=== PATIENT | female | born 1990 | race Caucasian/White ===

== ENCOUNTER 2017-03-17 12:18 | Emergency (ER) | payer BC ==
[2017-03-17 12:20] VITALS: BMI 53.4
[2017-03-17 12:26] VITALS: TEMP 98.9; O2SAT 98
[2017-03-17] MEDS ORDERED: Dexamethasone 4 mg/1 ml IVP STA (12:27)
[2017-03-17] MEDS ORDERED: Sodium Chloride 0.9% 1,000 ML IV STA (12:29)
--- NOTE | 2017-03-17 12:32 | ED PDOC ---
Arrival/HPI - General Historian: Patient - General Chief Complaint: ENT Problem Time Seen by Provider: 03/17/17 12:26 - History of Present Illness Narrative History of Present Illness (Text): 03/17/17 12:30 27 y/o female, no pmh, nkda, c/o throat pain and painful swallowing x 2 days. Aching throat pain, mild change in speech, no fever or chills, more painful today, no night sweat, no dizziness, no numbness or tingling, no palpitation, no other medical or psychological complaints. (Dakota Davison) Past Medical History - Provider Review Nursing Documentation Reviewed: Yes - Past History Past History: No Previous - Infectious Disease Hx of Infectious Diseases: None - Tetanus Immunization Tetanus Immunization: Unknown - Past Medical History Past Medical History: No Previous - Cardiac Hx Cardiac Disorders: No - Pulmonary Hx Respiratory Disorders: No - Neurological Hx Neurological Disorder: Yes Hx Seizures: Yes Other/Comment: febrile seizure - HEENT Hx HEENT Disorder: No - Renal Hx Renal Disorder: No - Endocrine/Metabolic Hx Endocrine Disorders: No - Hematological/Oncological Hx Blood Disorders: No - Integumentary Hx Dermatological Disorder: No - Musculoskeletal/Rheumatological Hx Musculoskeletal Disorders: No - Gastrointestinal Hx Gastrointestinal Disorders: No - Genitourinary/Gynecological Hx Genitourinary Disorders: No - Psychiatric Hx Psychophysiologic Disorder: No Hx Anxiety: Yes Hx Depression: No Hx Emotional Abuse: No Hx Physical Abuse: No Hx Substance Use: No - Past Surgical History Past Surgical History: No Previous - Anesthesia Hx Anesthesia: No - Suicidal Assessment Feels Threatened In Home Enviroment: No Family/Social History - Physician Review Nursing Documentation Reviewed: Yes Family/Social History: Unknown Family HX Smoking Status: Light Smoker < 10 Cigarettes Daily Hx Alcohol Use: Yes Hx Substance Use: No Hx Substance Use Treatment: No Allergies/Home Meds Allergies/Adverse Reactions: Allergies peanut Allergy (Verified 02/11/16 14:24) ANAPHYLAXIS Review of Systems - Review of Systems Constitutional: absent: Fatigue, Fevers Eyes: absent: Vision Changes ENT: Sore Throat. absent: Hearing Changes Respiratory: absent: Cough, Sputum Cardiovascular: absent: Chest Pain Gastrointestinal: absent: Abdominal Pain, Diarrhea, Nausea, Vomiting Musculoskeletal: absent: Arthralgias, Back Pain, Neck Pain, Joint Swelling, Myalgias Skin: absent: Rash, Pruritis, Skin Lesions, Laceration, Abscess, Ulcer, Cellulitis Neurological: absent: Headache, Dizziness, Focal Weakness Physical Exam Vital Signs Reviewed: Yes Temperature: Afebrile Blood Pressure: Hypertensive Pulse: Regular Respiratory Rate: Normal Appearance: Positive for: Well-Appearing, Non-Toxic, Comfortable, Uncomfortable Pain Distress: Severe Mental Status: Positive for: Alert and Oriented X 3 - Systems Exam Head: Present: Atraumatic, Normocephalic Pupils: Present: PERRL, Other (Rt. eye exopthalmos noted. ) Extroacular Muscles: Present: EOMI, Other (Eyes: rt. eye 20/800 with correction with exopthalmos along with the cornea is pointy when looking at laterally vs. left eye 20/40 with correction, bilateral 20/40 with correction, there is no corneal abrasion or laceration, there is ptosis of the rt. eye compared to the left eye. ) Conjunctiva: Present: Normal Mouth: Present: Moist Mucous Membranes Pharnyx: Present: Muffled/Hoarse Voice. No: ERYTHEMA, EXUDATE, TONSILS ENLARGED , Peritonsilar Swelling, Uvular Deviation, Strider, Soft Palate/Uvular Edema Nose (External): Present: Atraumatic. No: Abrasion, Contusion, Laceration Nose (Internal): Present: Normal Inspection, No Active Bleeding. No: Rhinorrhea , Septal Hematoma, Epistaxis Neck: Present: Normal Range of Motion, Trachea Midline. No: Meningeal Signs, MIDLINE TENDERNESS, Lymphadenopathy Respiratory/Chest: Present: Clear to Auscultation, Good Air Exchange. No: Respiratory Distress, Accessory Muscle Use Cardiovascular: Present: Regular Rate and Rhythm, Normal S1, S2. No: Murmurs Abdomen: Present: Normal Bowel Sounds. No: Tenderness, Distention, Peritoneal Signs Back: Present: Normal Inspection Upper Extremity: Present: Normal Inspection. No: Cyanosis, Edema Lower Extremity: Present: Normal Inspection. No: Edema Neurological: Present: GCS=15, CN II-XII Intact, Speech Normal Skin: Present: Warm, Dry, Normal Color. No: Rashes Psychiatric: Present: Alert, Oriented x 3, Normal Insight, Normal Concentration Vital Signs Temp Pulse Resp BP Pulse Ox 03/17/17 15:01 76 18 143/79 98 03/17/17 13:36 79 18 145/86 98 03/17/17 12:25 98.9 F 81 18 149/98 H 98 Medical Decision Making - RAD Interpretation Recessing Machine Operator: Radiologist ED Course and Treatment: The chart was reviewed by me, and I agree with disposition. (YuJulien) 03/17/17 12:29 -labs -CT soft tissue -IV decadron/toradol/clindamycin -Observe and reassess 03/17/17 15:41 -Labs are nonsignificant with no elevation of wbc. -CT show there is mildly enlarged palatine tonsils which could represent the sequela of tonsillitis, tosils encroach posteriomedially reducijng the oropharngeal airway. NO evidence of peritonsillar abscess. Enlarged adenoids. There is expansile lesion which displaced the left right globe the anterolaterlaly. -I discussed about the CT reading with the patient which she already realized the rt. 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 -I spoke to DR. Jose which I discussed about the vision and CT reading, suggest to see him at the office tomorrow 9am for follow up. 03/17/17 16:27 -I have been trying to call the ENT for over 45 minutes, no one call back, pt. feels much better with the muffling voice resolved. Pt. is able to drink and eat, no definite abscess, no emergent admission or observation needed at this point. Pt. advised to call the ENT when she leaves the hospital or tomorrow morning for the follow up tomorrow morning. -Case discussed with ER attending DR. Nicholas and he agreed on the consults plus dispo plan. 03/17/17 16:32 -Dr. Watts just call me back which he is covering for DR. Thakur which he agreed on the clindamycin and steroid treatment. Dr. Watts awared of the case and CT report after I discussed with him. Dr. Watts suggest to discharge home and follow up with his office tomorrow. -Discharge home with clindamycin, ibuprofen, medrodosepak, stay hydrated, soft food diet, stay hydrated, follow up with your own pmd within 2 days, follow up with DR. Jose tomorrow morning 9am for follow up regarding about the CT scan , follow up with Dr. Thakur tomorrow morning or within 24-48 hours, return to the ER for any new or worsening signs or symptoms. (Dakota Davison) - Lab Interpretations Lab Results: 03/17/17 12:55 03/17/17 12:55 Lab Results 03/17/17 12:55: Sodium 141, Potassium 3.8, Chloride 105, Carbon Dioxide 28, Anion Gap 12, BUN 15, Creatinine 0.6, Est GFR ( Amer) > 60, Est GFR (Non- Af Amer) > 60, Random Glucose 110, Calcium 9.1, Total Bilirubin 0.6, AST 22, ALT 31, Alkaline Phosphatase 98, Total Protein 8.6 H, Albumin 4.1, Globulin 4.6 , Albumin/Globulin Ratio 0.9 L 03/17/17 12:55: WBC 10.2 D, RBC 4.39, Hgb 11.4 L, Hct 36.2, MCV 82.5, MCH 26.0 , MCHC 31.5, RDW 15.5 H, Plt Count 346, MPV 9.3, Gran % 72.5 H, Lymph % (Auto) 19.9 L, Delta % (Auto) 5.7, Eos % (Auto) 1.5, Baso % (Auto) 0.4, Gran # 7.38 H, Lymph # 2.0, Delta # 0.6, Eos # 0.2, Baso # 0.04 - RAD Interpretation Radiology Orders: 03/17/17 12:28 NECK SOFT TISSUE W/CONTRAST [CT] Stat PROCEDURE: CT scan neck dated 03/17/2017 TECHNIQUE: Intravenous contrast dose: 100 cc of Omnipaque 350 contrast material. Radiation dose: DLP 494.59 mGy-cm This CT exam was performed using one or more of the following dose reduction techniques: Automated exposure control, adjustment of the mA and/or kV according to patient size, and/or use of iterative reconstruction technique. Findings: The tonsils are enlarged right greater than left and encroach medially into oropharynx reducing the airway. No obvious peritonsillar abscesses or fluid collections seen. The remaining oral pharyngeal structures appear grossly unremarkable. Parapharyngeal fat spaces are is relatively symmetric. There is also enlargement of the adenoid tonsils which reduce the posterior nasopharyngeal airway as well. Minimal asymmetry of the vallecula which could be due to some extension of lingual tonsils on however residual and or retained secretions may contribute. minor asymmetry of the of pyriform sinuses and aryepiglottic folds nonspecific. Direct visualization could be performed to exclude mucosal abnormality which is less likely in this age group though not completely excluded. The true vocal cords appear symmetric. Multiple small to medium sized bilateral cervical lymph nodes are seen within the jugulodigastric, posterior cervical spaces, submandibular and submental regions bilaterally. The largest left-sided jugulodigastric lymph node measures approximately 16 mm and on the right side 15.6 mm largest right-sided submandibular lymph node measures approximately 15.0 mm. The submandibular and parotid glands unremarkable. Mild mucosal thickening both maxillary antra as well as sphenoid sinus. There is also a relatively large expansile lesion seen in the superior aspect of the right ethmoid air complex and frontal sinus which measures approximately 3.0 trans x 2 5 cm cc x 2.25 cm AP. This has eroded the right lamina papyracea and extended into the medial aspect of the right orbit. The lesion also displaces the left right globe the yanci- laterally. This lesion is of uncertain etiology though could represent a mucocele. Impression: Mildly enlarged palatine tonsils which could represent the sequela of tonsillitis. The tonsils encroach posteromedially reducing the oropharyngeal airway. No evidence peritonsillar abscess. Enlarged adenoids. Multiple small to medium sized bilateral cervical lymph nodes as described. Minor asymmetry of the aryepiglottic folds and pyriform sinuses nonspecific. Direct visualization could be performed to exclude any mucosal lesion. Mild mucosal thickening both maxillary antra as well as sphenoid sinus. There is also a relatively large expansile lesion seen in the superior aspect of the right ethmoid air complex and frontal sinus which measures approximately 3.0 trans x 2 5 cm cc x 2.25 cm AP. This has eroded the right lamina papyracea and extended into the medial aspect of the right orbit. The lesion also displaces the left right globe the yanci- laterally. This lesion is of uncertain etiology though could represent a mucocele. Findings discussed with CARLTON Davison at 2:59 p.m. with written down and read back verification. (Dakota Davison) - Medication Orders Current Medication Orders: Discontinued Medications Clindamycin Phosphate (Cleocin) Confirm Administered Dose 600 mg .ROUTE .STK- MED ONE Stop: 03/17/17 12:43 Last Admin: 03/17/17 13:05 Dose: Dexamethasone (Decadron Inj) 8 mg IVP STAT STA Stop: 03/17/17 12:28 Last Admin: 03/17/17 12:58 Dose: 8 mg Clindamycin Phosphate 900 mg/ (Sodium Chloride) 106 mls @ 106 mls/hr IVPB STAT STA PRN Reason: Protocol Stop: 03/17/17 13:26 Last Admin: 03/17/17 12:58 Dose: 106 mls/hr Sodium Chloride (Sodium Chloride 0.9%) 1,000 mls @ 999 mls/hr IV .Q1H1M STA Stop: 03/17/17 13:29 Last Admin: 03/17/17 12:59 Dose: 999 mls/hr Iohexol (Omnipaque 350 100 Ml) Confirm Administered Dose 350 mg .ROUTE .STK-MED ONE Stop: 03/17/17 13:23 Ketorolac Tromethamine (Toradol) 30 mg IVP STAT STA Stop: 03/17/17 12:28 Last Admin: 03/17/17 12:58 Dose: 30 mg Re-Assess: [facility] Pain Assessment Document 03/17/17 13:58 HI (Rec: 03/17/17 14:44 HI [id number]) Pain Reassessment Is this a pain reassessment? Yes Sleep Is patient sleeping during reassessment? No Presence of Pain Presence of Pain No Pain Scale Used Pain Scale Used Numeric - PA / COMMUNICATION SPEC / Resident Statement MD/DO has reviewed & agrees with the documentation as recorded. Disposition/Present on Arrival - Present on Arrival Any Indicators Present on Arrival: No History of DVT/PE: No History of Uncontrolled Diabetes: No Urinary Catheter: No History of Decub. Ulcer: No History Surgical Site Infection Following: None - Disposition Have Diagnosis and Disposition been Completed?: Yes Disposition Time: 16:34 Patient Plan: Discharge - Disposition Diagnosis: Tonsillitis, Orbital lesion, Constant exophthalmos of right eye, Vision loss of right eye Disposition: HOME/ ROUTINE Patient Problems: Current Active Problems Problem Status Onset Constant exophthalmos of right eye Acute Orbital lesion Acute Tonsillitis Acute Vision loss of right eye Acute Condition: IMPROVED Additional Instructions: Discharge home with clindamycin, ibuprofen, medrodosepak, stay hydrated, soft food diet, stay hydrated, follow up with your own pmd within 2 days, follow up with DR. Jose tomorrow morning 9am for follow up regarding about the CT scan , follow up with Dr. Thakur tomorrow morning or within 24-48 hours, return to the ER for any new or worsening signs or symptoms. Prescriptions: Clindamycin [Cleocin] 300 mg PO QID #40 cap Ibuprofen [Motrin Tab] 800 mg PO TID PRN #21 tab PRN Reason: Other Methylprednisolone [Medrol Dose Pack (21 tabs)] 4 mg PO DAILY #21 mg Referrals: PCP,NO [Primary Care Provider] - Follow up with primary Carlos Watts DO [[facility]] - Follow up with primary David Jose MD [Staff Provider] - Follow up with primary Maureen Delgado MD [Staff Provider] - Follow up with primary Forms: WORK NOTE
[2017-03-17] MEDS ORDERED: Clindamycin 150 mg/mL Inj ONE (12:42)
[2017-03-17 13:01] LABS: ADD MANUAL DIFF? NO
[2017-03-17 13:09] LABS: BASO # 0.04 K/mm3 (0.0-2.0); BASO % 0.4 % (0.0-3.0); EOS # 0.2 (0.0-0.7); EOS % 1.5 % (1.5-5.0); GRAN # 7.38 (1.4-6.5); GRAN % 72.5 % (50.0-68.0); HEMATOCRIT 36.2 % (36.0-48.0); LYMPH % 19.9 % (22.0-35.0); MEAN CELL VOLUME 82.5 fL (80.0-105.0); MEAN CORPUSCULAR HGB CONC 31.5 g/dl (31.0-37.0); MEAN PLATELET VOLUME 9.3 fl (7.0-11.0); MONO # 0.6 (0.1-0.6); MONO % 5.7 % (1.0-6.0); PLATELET COUNT 346 10^3/uL (120.0-450.0); RED CELL DISTRIBUTION WIDTH 15.5 % (11.5-14.5); WHITE BLOOD COUNT 10.2 10^3/ul (4.5-11.0)
[2017-03-17 13:12] LABS: ALB/GLOB RATIO 0.9 (1.1-1.8); ALKALINE PHOSPHATASE 98 U/L (38-133); ALT/SGPT 31 U/L (7-56); AST/SGOT 22 U/L (15-39); BILIRUBIN,TOTAL 0.6 mg/dL (0.2-1.3); BLOOD UREA NITROGEN 15 mg/dL (7-21); CALCIUM 9.1 mg/dL (8.4-10.5); CARBON DIOXIDE 28 mmol/L (21-33); CHLORIDE 105 mmol/L (98-107); GFR AFRICAN-AMERICAN > 60; GLUCOSE,RANDOM 110 mg/dL (70-110); POTASSIUM 3.8 mmol/L (3.6-5.0); SODIUM 141 mmol/L (132-148); TOTAL PROTEIN 8.6 g/dL (5.8-8.3)
[2017-03-17] MEDS ORDERED: Iohexol 350 MG/100 ML VIAL ONE (13:22)
--- NOTE | 2017-03-17 15:01 | CT ---
PROCEDURE: CT scan neck dated 03/17/2017 TECHNIQUE: Intravenous contrast dose: 100 cc of Omnipaque 350 contrast material. Radiation dose: DLP 494.59 mGy-cm This CT exam was performed using one or more of the following dose reduction techniques: Automated exposure control, adjustment of the mA and/or kV according to patient size, and/or use of iterative reconstruction technique. Findings: The tonsils are enlarged right greater than left and encroach medially into oropharynx reducing the airway. No obvious peritonsillar abscesses or fluid collections seen. The remaining oral pharyngeal structures appear grossly unremarkable. Parapharyngeal fat spaces are is relatively symmetric. There is also enlargement of the adenoid tonsils which reduce the posterior nasopharyngeal airway as well. Minimal asymmetry of the vallecula which could be due to some extension of lingual tonsils on however residual and or retained secretions may contribute. minor asymmetry of the of pyriform sinuses and aryepiglottic folds nonspecific. Direct visualization could be performed to exclude mucosal abnormality which is less likely in this age group though not completely excluded. The true vocal cords appear symmetric. Multiple small to medium sized bilateral cervical lymph nodes are seen within the jugulodigastric, posterior cervical spaces, submandibular and submental regions bilaterally. The largest left-sided jugulodigastric lymph node measures approximately 16 mm and on the right side 15.6 mm largest right-sided submandibular lymph node measures approximately 15.0 mm. The submandibular and parotid glands unremarkable. Mild mucosal thickening both maxillary antra as well as sphenoid sinus. There is also a relatively large expansile lesion seen in the superior aspect of the right ethmoid air complex and frontal sinus which measures approximately 3.0 trans x 2 5 cm cc x 2.25 cm AP. This has eroded the right lamina papyracea and extended into the medial aspect of the right orbit. The lesion also displaces the left right globe the yanci- laterally. This lesion is of uncertain etiology though could represent a mucocele. Impression: Mildly enlarged palatine tonsils which could represent the sequela of tonsillitis. The tonsils encroach posteromedially reducing the oropharyngeal airway. No evidence peritonsillar abscess. Enlarged adenoids. Multiple small to medium sized bilateral cervical lymph nodes as described. Minor asymmetry of the aryepiglottic folds and pyriform sinuses nonspecific. Direct visualization could be performed to exclude any mucosal lesion. Mild mucosal thickening both maxillary antra as well as sphenoid sinus. There is also a relatively large expansile lesion seen in the superior aspect of the right ethmoid air complex and frontal sinus which measures approximately 3.0 trans x 2 5 cm cc x 2.25 cm AP. This has eroded the right lamina papyracea and extended into the medial aspect of the right orbit. The lesion also displaces the left right globe the yanci- laterally. This lesion is of uncertain etiology though could represent a mucocele. Findings discussed with CARLTON Davison at 2:59 p.m. with written down and read back verification.
[2017-03-17 16:58] VITALS: BP 142/80; PULSE 74; RESP 16
== END 2017-03-17 16:58 | disposition home or self-care (01) ==
LOC: ED 12:18
DX: J03.90 Acute tonsillitis, unspecified (principal); H05.89 Other disorders of orbit; H05.241 Constant exophthalmos, right eye; H54.7 Unspecified visual loss
CPT/HCPCS: 70491; 80053; 85025; 85027; 96374; 96375; 99284; J1100; J1885; J7040; Q9967

== ENCOUNTER 2018-01-29 02:02 | Inpatient (IN) | payer BC ==
[2018-01-29 02:20] VITALS: BMI 53.8
--- NOTE | 2018-01-29 02:43 | ED PDOC ---
Arrival/HPI - General Chief Complaint: Abdominal Pain Time Seen by Provider: 01/29/18 02:29 Historian: Patient - History of Present Illness Narrative History of Present Illness (Text): 01/29/18 02:44 A 28 year old female, no past medical history, presents to the emergency department complaining of abdominal pain for the past four days. Patient reports pain developed after eating uncooked cabbage and beef, notes vomiting four days ago. Patient states pain doesn't radiate. Reports mother had gallbladder removed. Reports she is unable to eat due to abdominal pain. Patient denies any other complaints at this time. Time/Duration: < week Symptom Onset: Sudden Symptom Course: Unchanged Activities at Onset: Rest Context: Home Past Medical History - Provider Review Nursing Documentation Reviewed: Yes - Past History Past History: No Previous - Infectious Disease Hx of Infectious Diseases: None - Tetanus Immunization Tetanus Immunization: Unknown - Past Medical History Past Medical History: No Previous - Cardiac Hx Cardiac Disorders: No - Pulmonary Hx Respiratory Disorders: No - Neurological Hx Neurological Disorder: Yes Hx Seizures: Yes Other/Comment: febrile seizure - HEENT Hx HEENT Disorder: No - Renal Hx Renal Disorder: No - Endocrine/Metabolic Hx Endocrine Disorders: No - Hematological/Oncological Hx Blood Disorders: No - Integumentary Hx Dermatological Disorder: No - Musculoskeletal/Rheumatological Hx Musculoskeletal Disorders: No - Gastrointestinal Hx Gastrointestinal Disorders: No - Genitourinary/Gynecological Hx Genitourinary Disorders: No - Psychiatric Hx Psychophysiologic Disorder: No Hx Anxiety: Yes Hx Depression: No Hx Emotional Abuse: No Hx Physical Abuse: No Hx Substance Use: No - Past Surgical History Past Surgical History: No Previous - Anesthesia Hx Anesthesia: No - Suicidal Assessment Feels Threatened In Home Enviroment: No Family/Social History - Physician Review Nursing Documentation Reviewed: Yes Family/Social History: No Known Family HX Smoking Status: Light Smoker < 10 Cigarettes Daily Hx Alcohol Use: Yes Hx Substance Use: No Hx Substance Use Treatment: No Allergies/Home Meds Allergies/Adverse Reactions: Allergies peanut Allergy (Verified 02/11/16 14:24) ANAPHYLAXIS Home Medications: Home Meds Medication Instructions Recorded Confirmed No Known Home Med 01/29/18 01/29/18 Review of Systems - Physician Review All systems were reviewed & negative as marked: Yes - Review of Systems Constitutional: absent: Fevers Gastrointestinal: Abdominal Pain, Vomiting Physical Exam Vital Signs Reviewed: Yes Vital Signs Temp Pulse Resp BP Pulse Ox 01/29/18 05:45 98.2 F 86 18 141/80 99 01/29/18 04:03 82 18 138/72 99 01/29/18 02:29 98.1 F 92 H 18 147/82 99 Temperature: Afebrile Blood Pressure: Normal Pulse: Regular Respiratory Rate: Normal Appearance: Positive for: Well-Appearing, Non-Toxic, Comfortable Pain Distress: None Mental Status: Positive for: Alert and Oriented X 3 - Systems Exam Head: Present: Atraumatic, Normocephalic Pupils: Present: PERRL Extroacular Muscles: Present: EOMI Conjunctiva: Present: Normal Mouth: Present: Moist Mucous Membranes Neck: Present: Normal Range of Motion Respiratory/Chest: Present: Clear to Auscultation, Good Air Exchange. No: Respiratory Distress, Accessory Muscle Use Cardiovascular: Present: Regular Rate and Rhythm, Normal S1, S2. No: Murmurs Abdomen: Present: Tenderness (epigastric and RUQ), Normal Bowel Sounds. No: Distention, Peritoneal Signs Back: Present: Normal Inspection Upper Extremity: Present: Normal Inspection. No: Cyanosis, Edema Lower Extremity: Present: Normal Inspection. No: Edema Neurological: Present: GCS=15, CN II-XII Intact, Speech Normal Skin: Present: Warm, Dry, Normal Color. No: Rashes Psychiatric: Present: Alert, Oriented x 3, Normal Insight, Normal Concentration Medical Decision Making ED Course and Treatment: 01/29/18 02:43 Impression: A 28 year old female with abdominal pain and vomiting. Plan: -- US abdomen -- labs -- Urinalysis -- Pepcid, Toradol, Zofran -- Reassess and disposition Prior Visits: Notes and results from previous visits were reviewed. Patient was last seen in the emergency department on 03/17/17 for evaluation of throat pain and painful swallowing. Progress Notes: US Abdomen Complete FINDINGS: Limitations: Body habitus. Liver: Normal echogenicity. No mass. No intrahepatic bile duct dilatation. Gallbladder: 2.1 cm nonmobile stone within neck. Sludge. 0.8 cm wall thickness. Mild pericholecystic fluid. No sonographic Samuel's sign. Common bile duct: Up to 0.66 cm in diameter. No stones. Pancreas: Unremarkable as visualized. Kidneys: Normal echogenicity. No hydronephrosis. Spleen: No splenomegaly. Aorta: Unremarkable as visualized. Inferior vena cava: Unremarkable. Free fluid: No significant free fluid. IMPRESSION: 1. Cholelithiasis with gallbladder wall thickening and pericholecystic fluid concerning for acute cholecystitis. Clinical correlation is needed. 2. Borderline biliary ductal dilatation. Correlate with laboratory values. Consider MRCP. Dictated and Authenticated by: Jerry Montenegro MD 01/29/2018 4:01 AM Eastern Time ([place] & [place]) - Lab Interpretations Lab Results: 01/29/18 03:30 01/29/18 03:30 Lab Results 01/29/18 03:30: Sodium 139, Potassium 3.8, Chloride 104, Carbon Dioxide 26, Anion Gap 13, BUN 11, Creatinine 0.5 L, Est GFR ( Amer) > 60, Est GFR ( Non-Af Amer) > 60, Random Glucose 102, Calcium 9.4, Total Bilirubin 0.2, AST 27 , ALT 34, Alkaline Phosphatase 93, Total Protein 7.9, Albumin 3.9, Globulin 4.0 , Albumin/Globulin Ratio 1.0 L, Lipase 96 01/29/18 03:30: Urine Color Yellow, Urine Appearance Clear, Urine pH 6.5, Ur Specific Lockwood 1.010, Urine Protein Negative, Urine Glucose (UA) Negative, Urine Ketones Negative, Urine Blood Negative, Urine Nitrate Negative, Urine Bilirubin Negative, Urine Urobilinogen 0.2, Ur Leukocyte Esterase Negative 01/29/18 03:30: PT 13.7 H, INR 1.20 H 01/29/18 03:30: WBC 8.9, RBC 4.33, Hgb 11.3 L, Hct 36.1, MCV 83.4, MCH 26.1, MCHC 31.3, RDW 14.9 H, Plt Count 313, MPV 9.5, Gran % 63.5, Lymph % (Auto) 23.6 , Dawes % (Auto) 9.5 H, Eos % (Auto) 2.8, Baso % (Auto) 0.6, Gran # 5.64, Lymph # (Auto) 2.1, Dawes # (Auto) 0.8 H, Eos # (Auto) 0.3, Baso # (Auto) 0.05 I have reviewed the lab results: Yes - RAD Interpretation Radiology Orders: 01/29/18 02:37 ABDOMEN COMPLETE [US] Stat - Medication Orders Current Medication Orders: Enoxaparin Sodium (Lovenox) 40 mg SC DAILY MARSHALL PRN Reason: Protocol Hydromorphone HCl (Dilaudid) 0.5 mg IVP Q4H PRN PRN Reason: Pain, severe (8-10) Hydromorphone HCl (Dilaudid) 1 mg IVP Q15M PRN PRN Reason: Pain, moderate (4-7) Stop: 01/29/18 19:59 Last Admin: 01/29/18 19:10 Dose: 1 mg MAR Pain Assessment Document 01/29/18 19:10 SHAWNAJake (Rec: 01/29/18 19:15 [id number]) Pain Reassessment Is this a pain reassessment? Yes Sleep Is patient sleeping during reassessment? No Presence of Pain Presence of Pain Yes Pain Scale Used Pain Scale Used Numeric Location Pain Location Body Site Abdomen Description Description Acute Intensity of Pain at present 8 Acceptable Level of Pain 2 Duration s/p lap faina Pain Behavior Crying Restlessness Facial Grimacing Aggravating Factors None Alleviating Factors/Management Medication Techniques Relaxation Techniques Alleviating Factors Medication Effects of Pain decrease ADL Effectiveness of Techniques patient will verbalized tolerable pain Pain not relieved and LIP/MD was Yes notified IVP Administration Document 01/29/18 19:10 SHAWNAJake (Rec: 01/29/18 19:15 [id number]) Charges for Administration # of IVP Administrations 1 Sodium Chloride (Sodium Chloride 0.9%) 1,000 mls @ 150 mls/hr IV .Q6H40M [facility] Last Admin: 01/29/18 05:38 Dose: 150 mls/hr eMAR Start Stop Document 01/29/18 05:38 BEAR (Rec: 01/29/18 05:38 BEAR [id number]) Intravenous Solution Start Date 01/29/18 Start Time 05:38 Metronidazole (Flagyl) 500 mg in 100 mls @ 100 mls/hr IVPB Q8 MARSHALL PRN Reason: Protocol Stop: 02/01/18 14:01 Last Admin: 01/29/18 13:36 Dose: 100 mls/hr eMAR Start Stop Document 01/29/18 13:36 SML (Rec: 01/29/18 13:36 SML [id number]) Intravenous Solution Start Date 01/29/18 Start Time 13:36 End Date 01/29/18 End time 14:36 Total Infusion Time 60 Ceftriaxone Sodium (Rocephin 1 Gram Ivpb) 1 gm in 100 mls @ 100 mls/hr IVPB DAILY MARSHALL PRN Reason: Protocol Stop: 02/01/18 10:01 Last Admin: 01/29/18 10:50 Dose: 100 mls/hr eMAR Start Stop Document 01/29/18 10:50 SML (Rec: 01/29/18 10:52 [id number] Intravenous Solution Start Date 01/29/18 Start Time 10:52 End Date 01/29/18 End time 11:52 Total Infusion Time 60 Lactated Ringer's (Lactated Ringer's) 1,000 mls @ 75 mls/hr IV .[id number] MARSHALL Stop: 01/29/18 20:01 Last Admin: 01/29/18 18:45 Dose: 75 mls/hr eMAR Start Stop Document 01/29/18 18:45 PRESLEY (Rec: 01/29/18 19:16 CRUZE [id number]) Intravenous Solution Start Date 01/29/18 Start Time 18:45 Ondansetron HCl (Zofran Inj) 4 mg IVP Q4 PRN PRN Reason: Nausea/Vomiting Ondansetron HCl (Zofran Inj) 4 mg IVP ONCE PRN PRN Reason: Nausea/Vomiting Stop: 01/29/18 23:59 Oxycodone/Acetaminophen (Percocet 5/325 Mg Tab) 1 tab PO Q4H PRN PRN Reason: Pain, moderate (4-7) Stop: 02/01/18 19:04 Sennosides (Senokot Tab) 17.2 mg PO HS [facility] Discontinued Medications Famotidine (Pepcid) 20 mg IVP STAT STA Stop: 01/29/18 02:38 Last Admin: 01/29/18 03:34 Dose: 20 mg IVP Administration Document 01/29/18 03:34 BEAR (Rec: 01/29/18 03:34 [facility] Charges for Administration # of IVP Administrations 1 Metronidazole (Flagyl) 500 mg in 100 mls @ 100 mls/hr IVPB STAT STA PRN Reason: Protocol Stop: 01/29/18 05:31 Last Admin: 01/29/18 05:37 Dose: 100 mls/hr eMAR Start Stop Document 01/29/18 05:37 BEAR (Rec: 01/29/18 05:37 [facility] Intravenous Solution Start Date 01/29/18 Start Time 05:37 End Date 01/29/18 End time 06:37 Total Infusion Time 60 Acetaminophen 1,000 mg/ (Miscellaneous) 100 mls @ 400 mls/hr IVPB ONCE ONE Stop: 01/29/18 18:12 Last Admin: 01/29/18 19:21 Dose: 400 mls/hr eMAR Start Stop Document 01/29/18 19:21 CRUZE (Rec: 01/29/18 19:25 CRUZE [id number]) Intravenous Solution Start Date 01/29/18 Start Time 19:21 End Date 01/29/18 End time 19:37 Total Infusion Time 16 MAR Pain Assessment Document 01/29/18 19:21 CRUZJake (Rec: 01/29/18 19:25 CRUZE [id number]) Pain Reassessment Is this a pain reassessment? Yes Sleep Is patient sleeping during reassessment? Yes Pain Scale Used Pain Scale Used Numeric Location Pain Location Body Site Abdomen Description Description Acute Intensity of Pain at present 6 Site Observation S/P LAP FAINA Pain Behavior Moaning Restlessness Facial Grimacing Aggravating Factors None Alleviating Factors/Management Medication Techniques Distraction Relaxation Techniques Alleviating Factors Medication Effects of Pain restless and uncomfortable Effectiveness of Techniques patient will report tolerable pain Pain not relieved and LIP/MD was Yes notified Ketorolac Tromethamine (Toradol) 30 mg IVP STAT STA Stop: 01/29/18 02:38 Last Admin: 01/29/18 03:34 Dose: 30 mg MAR Pain Assessment Document 01/29/18 03:34 BEAR (Rec: 01/29/18 03:34 [facility] Pain Reassessment Is this a pain reassessment? No IVP Administration Document 01/29/18 03:34 BEAR (Rec: 01/29/18 03:34 BEAR [place] [id number]) Charges for Administration # of IVP Administrations 1 Levofloxacin/Dextrose (Levaquin 750mg) 750 mg IVPB ONCE ONE PRN Reason: Protocol Stop: 01/29/18 04:37 Last Admin: 01/29/18 05:37 Dose: 750 mg eMAR Start Stop Document 01/29/18 05:37 BEAR (Rec: 01/29/18 05:37 BEAR [place] [id number]) Intravenous Solution Start Date 01/29/18 Start Time 05:37 End Date 01/29/18 End time 07:07 Total Infusion Time 90 Ondansetron HCl (Zofran Inj) 4 mg IVP STAT STA Stop: 01/29/18 02:38 Last Admin: 01/29/18 03:34 Dose: 4 mg IVP Administration Document 01/29/18 03:34 BEAR (Rec: 01/29/18 03:34 BEAR [place] [id number]) Charges for Administration # of IVP Administrations 1 - PA / [employer] / Resident Statement MD/DO has reviewed & agrees with the documentation as recorded. - Scribe Statement The provider has reviewed the documentation as recorded by the Scribe Everett Sofia Provider Scribe Attestation: All medical record entries made by the Scribe were at my direction and personally dictated by me. I have reviewed the chart and agree that the record accurately reflects my personal performance of the history, physical exam, medical decision making, and the department course for this patient. I have also personally directed, reviewed, and agree with the discharge instructions and disposition. Disposition/Present on Arrival - Present on Arrival Any Indicators Present on Arrival: No History of DVT/PE: No History of Uncontrolled Diabetes: No Urinary Catheter: No History of Decub. Ulcer: No History Surgical Site Infection Following: None - Disposition Have Diagnosis and Disposition been Completed?: Yes Diagnosis: Acute cholecystitis Disposition: HOSPITALIZED Disposition Time: 03:00 Patient Plan: Admission Condition: GOOD
--- NOTE | 2018-01-29 04:01 | US ---
EXAM: US Abdomen Complete CLINICAL HISTORY: 28 years old, female; Pain; Abdominal pain; Generalized; Additional info: Biliary colic ? gallstone TECHNIQUE: Real-time ultrasound of the abdomen (complete) with image documentation. COMPARISON: No relevant prior studies available. FINDINGS: Limitations: Body habitus. Liver: Normal echogenicity. No mass. No intrahepatic bile duct dilatation. Gallbladder: 2.1 cm nonmobile stone within neck. Sludge. 0.8 cm wall thickness. Mild pericholecystic fluid. No sonographic Samuel's sign. Common bile duct: Up to 0.66 cm in diameter. No stones. Pancreas: Unremarkable as visualized. Kidneys: Normal echogenicity. No hydronephrosis. Spleen: No splenomegaly. Aorta: Unremarkable as visualized. Inferior vena cava: Unremarkable. Free fluid: No significant free fluid. IMPRESSION: 1. Cholelithiasis with gallbladder wall thickening and pericholecystic fluid concerning for acute cholecystitis. Clinical correlation is needed. 2. Borderline biliary ductal dilatation. Correlate with laboratory values. Consider MRCP.
[2018-01-29 04:05] LABS: BASO # 0.05 K/mm3 (0.0-2.0); BASO % 0.6 % (0.0-3.0); EOS # 0.3 (0.0-0.7); EOS % 2.8 % (1.5-5.0); GRAN # 5.64 (1.4-6.5); GRAN % 63.5 % (50.0-68.0); HEMOGLOBIN 11.3 g/dL (12.0-16.0); LYMPH # 2.1 (1.2-3.4); LYMPH % 23.6 % (22.0-35.0); MEAN CELL VOLUME 83.4 fl (80.0-105.0); MEAN CORPUSCULAR HEMOGLOBIN 26.1 pg (25.0-35.0); MEAN CORPUSCULAR HGB CONC 31.3 g/dl (31.0-37.0); MEAN PLATELET VOLUME 9.5 fl (7.0-11.0); MONO # 0.8 (0.1-0.6); MONO % 9.5 % (1.0-6.0); RBC 4.33 10^6/uL (3.5-6.1); RED CELL DISTRIBUTION WIDTH 14.9 % (11.5-14.5); WHITE BLOOD COUNT 8.9 10^3/ul (4.5-11.0)
[2018-01-29 04:08] LABS: PH,URINE 6.5 (4.7-8.0); URINE BILIRUBIN NEGATIVE (NEGATIVE); URINE BLOOD NEGATIVE (NEGATIVE); URINE GLUCOSE (UA) NEGATIVE (NEGATIVE); URINE LEUKOCYTE ESTERASE NEGATIVE Leu/uL (NEGATIVE); URINE PROTEIN NEGATIVE mg/dL (<30 mg/dL); URINE UROBILINOGEN 0.2 E.U./dL (<1 E.U./dL)
[2018-01-29 04:19] LABS: INR 1.2 (0.93-1.08); PROTHROMBIN TIME 13.7 SECONDS (9.4-12.5)
[2018-01-29 04:20] LABS: ALBUMIN 3.9 g/dL (3.0-4.8); ALT/SGPT 34 U/L (7-56); AST/SGOT 27 U/L (14-36); BLOOD UREA NITROGEN 11 mg/dL (7-21); CALCIUM 9.4 mg/dL (8.4-10.5); GFR AFRICAN-AMERICAN > 60; GFR NON-AFRICAN AMERICAN > 60; LIPASE 96 U/L (23-300)
[2018-01-29 04:21] LABS: URINE APPEARANCE CLEAR (CLEAR); URINE COLOR YELLOW (YELLOW)
[2018-01-29] MEDS ORDERED: metroNIDAZOLE IV 500 mg/100 ml 500 MG/100 ML BAG IVPB STA (04:32)
[2018-01-29] MEDS ORDERED: levoFLOXacin 750 mg in D5W 150 ML BAG IVPB ONE (04:36)
--- NOTE | 2018-01-29 05:12 | CP.PCM.HP ---
History of Present Illness - History of Present Illness History of Present Illness: Surgery: Dr. Vegas CC: Abd pain HPI: 28F w. no pmh presents w. intermittent epigastric pain starting Friday morning 1AM following a cabbage meal on friday. Pain has been described as sharp, non-radiating, w. no alleviating or aggravating factors. Pain associated w. decreased appetite and nausea with multiple episodes of NBNB emesis. Pt denies diarrhea. Reports chills which are baseline for her. No fevers. Pt had U/ S done in ED which showed findings concerning for cholecystitis. PMH: None PSH: none Meds: none NKDA Social: +Tobacco, social ETOH, no drugs Fhx: non-contributory Present on Admission - Present on Admission Any Indicators Present on Admission: No Review of Systems - Review of Systems All systems: reviewed and no additional remarkable complaints except (HPI) Past Patient History - Infectious Disease Hx of Infectious Diseases: None - Tetanus Immunizations Tetanus Immunization: Unknown - Past Social History Smoking Status: Light Smoker < 10 Cigarettes Daily - CARDIAC Hx Cardiac Disorders: No - PULMONARY Hx Respiratory Disorders: No - NEUROLOGICAL Hx Neurological Disorder: Yes Hx Seizures: Yes Other/Comment: febrile seizure - HEENT Hx HEENT Problems: No - RENAL Hx Chronic Kidney Disease: No - ENDOCRINE/METABOLIC Hx Endocrine Disorders: No - HEMATOLOGICAL/ONCOLOGICAL Hx Blood Disorders: No - INTEGUMENTARY Hx Dermatological Problems: No - MUSCULOSKELETAL/RHEUMATOLOGICAL Hx Musculoskeletal Disorders: No - GASTROINTESTINAL Hx Gastrointestinal Disorders: No - GENITOURINARY/GYNECOLOGICAL Hx Genitourinary Disorders: No - PSYCHIATRIC Hx Psychophysiologic Disorder: No Hx Anxiety: Yes Hx Depression: No Hx Emotional Abuse: No Hx Physical Abuse: No Hx Substance Use: No - SURGICAL HISTORY Hx Surgeries: No - ANESTHESIA Hx Anesthesia: No Meds Allergies/Adverse Reactions: Allergies Allergy/AdvReac Type Severity Reaction Status Date / Time peanut Allergy ANAPHYLAXIS Verified 02/11/16 14:24 Physical Exam - Constitutional Appears: Non-toxic, No Acute Distress - Head Exam Head Exam: ATRAUMATIC, NORMOCEPHALIC - Eye Exam Eye Exam: EOMI Pupil Exam: NORMAL ACCOMODATION - ENT Exam ENT Exam: Mucous Membranes Moist - Neck Exam Neck exam: Positive for: Full Rom - Respiratory Exam Respiratory Exam: NORMAL BREATHING PATTERN. absent: Accessory Muscle Use, Respiratory Distress - Cardiovascular Exam Cardiovascular Exam: REGULAR RHYTHM - GI/Abdominal Exam GI & Abdominal Exam: Soft, Tenderness (epigastrtic/RUQ +Samule). absent: Distended, Firm, Guarding, Rebound, Rigid - Extremities Exam Extremities exam: Negative for: calf tenderness, pedal edema - Neurological Exam Neurological exam: Alert, Oriented x3 - Psychiatric Exam Psychiatric exam: Normal Affect, Normal Mood - Skin Skin Exam: Dry, Intact, Warm Results - Vital Signs Recent Vital Signs: Last Vital Signs Temp 98.1 F 01/29/18 02:29 Pulse 92 H 01/29/18 02:29 Resp 18 01/29/18 02:29 BP 147/82 01/29/18 02:29 Pulse Ox 99 01/29/18 02:29 - Labs Result Diagrams: 01/29/18 03:30 01/29/18 03:30 Labs: Laboratory Results - last 24 hr 01/29/18 01/29/18 01/29/18 03:30 03:30 03:30 WBC 8.9 RBC 4.33 Hgb 11.3 L Hct 36.1 MCV 83.4 MCH 26.1 MCHC 31.3 RDW 14.9 H Plt Count 313 MPV 9.5 Gran % 63.5 Lymph % (Auto) 23.6 Real % (Auto) 9.5 H Eos % (Auto) 2.8 Baso % (Auto) 0.6 Gran # 5.64 Lymph # (Auto) 2.1 Real # (Auto) 0.8 H Eos # (Auto) 0.3 Baso # (Auto) 0.05 PT 13.7 H INR 1.20 H Sodium Potassium Chloride Carbon Dioxide Anion Gap BUN Creatinine Est GFR ( Amer) Est GFR (Non-Af Amer) Random Glucose Calcium Total Bilirubin AST ALT Alkaline Phosphatase Total Protein Albumin Globulin Albumin/Globulin Ratio Lipase Urine Color Yellow Urine Appearance Clear Urine pH 6.5 Ur Specific Lydia 1.010 Urine Protein Negative Urine Glucose (UA) Negative Urine Ketones Negative Urine Blood Negative Urine Nitrate Negative Urine Bilirubin Negative Urine Urobilinogen 0.2 Ur Leukocyte Esterase Negative 01/29/18 03:30 WBC RBC Hgb Hct MCV MCH MCHC RDW Plt Count MPV Gran % Lymph % (Auto) Real % (Auto) Eos % (Auto) Baso % (Auto) Gran # Lymph # (Auto) Real # (Auto) Eos # (Auto) Baso # (Auto) PT INR Sodium 139 Potassium 3.8 Chloride 104 Carbon Dioxide 26 Anion Gap 13 BUN 11 Creatinine 0.5 L Est GFR ( Amer) > 60 Est GFR (Non-Af Amer) > 60 Random Glucose 102 Calcium 9.4 Total Bilirubin 0.2 AST 27 ALT 34 Alkaline Phosphatase 93 Total Protein 7.9 Albumin 3.9 Globulin 4.0 Albumin/Globulin Ratio 1.0 L Lipase 96 Urine Color Urine Appearance Urine pH Ur Specific Lydia Urine Protein Urine Glucose (UA) Urine Ketones Urine Blood Urine Nitrate Urine Bilirubin Urine Urobilinogen Ur Leukocyte Esterase - Imaging and Cardiology US - abdomen Status: Image reviewed by me, Report reviewed by me Assessment & Plan - Assessment and Plan (Free Text) Assessment: 28F w. cholecystitis Plan: -NPO -IVF -pain meds -zofran -abx -will plan for OR, time to be determined -will discuss w. attending Zemaitis PGY3 Decision To Admit - Pt Status Changed To: Hospital Disposition Of: Inpatient Admission - Admit Certification Admit to Inpatient:: After my assessment, the patient will require hospitalization for at least two midnights. This is because of the severity of symptoms shown, intensity of services needed, and/or the medical risk in this patient being treated as an outpatient. - . Bed Request Type: Med/Surg Admitting Physician: Toribio Vegas
[2018-01-29] MEDS: Sodium Chloride 0.9% 1,000 ML IV SCH ×2 (05:38→22:19)
[2018-01-29] MEDS: cefTRIAXone 1 gm 1 GM/100 ML BAG IVPB SCH (10:50)
[2018-01-29] MEDS: metroNIDAZOLE IV 500 mg/100 ml 500 MG/100 ML BAG IVPB SCH ×2 (13:36→22:18)
[2018-01-29] MEDS ORDERED: Bupivacaine 0.5% Inj(30mL) ONE (15:16)
[2018-01-29] MEDS ORDERED: Iohexol 240 (50 ml) ONE (15:16)
[2018-01-29] MEDS ORDERED: Propofol 10 mg/ml Inj (20 ML) ONE ×2 (15:59→18:06)
[2018-01-29] MEDS ORDERED: Succinylcholine 200 mg/10 ml Inj IV ONE (16:13)
[2018-01-29] MEDS ORDERED: Neostigmine Methylsulfate 3mg/3ml Syringe IV ONE (16:40)
[2018-01-29] MEDS ORDERED: Desflurane Inhalation Anesthetic Liq (240 ml) ONE ×2 (16:40→17:08)
[2018-01-29] MEDS ORDERED: Esmolol 100 mg/10ml Inj IV ONE (16:42)
[2018-01-29] MEDS ORDERED: Rocuronium 10 mg/ml (5 ml) ONE (17:05)
[2018-01-29] MEDS ORDERED: Phenylephrine 10 mg/ml Inj ONE ×2 (17:25→17:27)
[2018-01-29] MEDS ORDERED: Acetaminophen IV 1,000 MG in Premixed IV 100 EA IVPB ONE (17:58)
[2018-01-29] MEDS ORDERED: Lactated Ringer's 1,000 ML IV SCH (18:00)
[2018-01-29] MEDS ORDERED: HYDROmorphone 1 mg/ml ISec ONE ×2 (18:46→19:09)
[2018-01-29] MEDS: HYDROmorphone 1 mg/ml ISec IVP PRN ×2 (18:50→19:10)
--- NOTE | 2018-01-29 18:56 | PCM.SURG1 ---
Surgeon's Initial Post Op Note - Surgeon's Notes Surgeon: Dr. Vegas Manager Of School: Dr. Edouard PGY2, Dr. Eldridge PGY3 Type of Anesthesia: General Endo Pre-Operative Diagnosis: acute cholecystitis Operative Findings: see operative report Post-Operative Diagnosis: same Operation Performed: laparoscopic cholecystectomy. Intraoperative cholangiogram Specimen/Specimens Removed: gallbladder Estimated Blood Loss: EBL {In ML}: 75 Blood Products Given: N/A Drains Used: No Drains Post-Op Condition: Good Date of Surgery/Procedure: 01/29/18 Time of Surgery/Procedure: 18:56
[2018-01-29] MEDS ORDERED: Oxycodone/Acetaminophen 5/325 mg Tab PO PRN (19:03)
[2018-01-29] MEDS ORDERED: Influenza Vaccine 60 mcg/0.5 mL SYR (4YR UP) IM ONE (22:36)
[2018-01-30] MEDS: Sodium Chloride 0.9% 1,000 ML IV SCH (01:30)
[2018-01-30] MEDS: metroNIDAZOLE IV 500 mg/100 ml 500 MG/100 ML BAG IVPB SCH ×2 (05:27→13:10)
[2018-01-30] MEDS: HYDROmorphone 0.5 mg/0.5 ml ISec IVP PRN ×2 (05:31→10:54)
[2018-01-30 06:30] LABS: BASO # 0.03 K/mm3 (0.0-2.0); BASO % 0.3 % (0.0-3.0); EOS # 0.1 (0.0-0.7); EOS % 0.8 % (1.5-5.0); GRAN # 5.88 (1.4-6.5); GRAN % 67.4 % (50.0-68.0); HEMOGLOBIN 10.6 g/dL (12.0-16.0); LYMPH % 22.5 % (22.0-35.0); MEAN CORPUSCULAR HEMOGLOBIN 26.1 pg (25.0-35.0); MEAN CORPUSCULAR HGB CONC 30.7 g/dl (31.0-37.0); MEAN PLATELET VOLUME 9.6 fl (7.0-11.0); MONO # 0.8 (0.1-0.6); RBC 4.06 10^6/uL (3.5-6.1); RED CELL DISTRIBUTION WIDTH 15.2 % (11.5-14.5); WHITE BLOOD COUNT 8.7 10^3/ul (4.5-11.0)
--- NOTE | 2018-01-30 07:31 | OP ---
PROCEDURE DATE: 01/29/2018 PREOPERATIVE DIAGNOSES: Acute and chronic cholecystitis and cholelithiasis. POSTOPERATIVE DIAGNOSES: Acute and chronic cholecystitis and cholelithiasis with common duct stone. OPERATION PERFORMED: Laparoscopic cholecystectomy, intraoperative cholangiogram. SURGEON: Toribio Vegas M.D. COMPLEX HUMAN RESOURCES MANAGER: and Dr. Semaj Edouard. DESCRIPTION OF PROCEDURE: Patient was identified with a timeout that was achieved at the end of the prep and drape. The patient was identified by the name of procedure, laterality of my katarina, the consent, wrist band, and the number. The area was prepped first with chlorhexidine with alcohol and after 3 minutes it was draped after the successful timeout. A supraumbilical incision was made. It was dissected down to the fascia. The Veress needle was inserted on the fourth or fifth attempt. We found free peritoneum, the opening pressure being about 4. A 2.5 L were insufflated to a pressure of about 5 and the Visiport was placed. We went in through the length of the cannula. This allowed the visualization of a xiphoid 5 and two lateral 5s. The gallbladder was inflamed. It was thick walled with multiple stones. A Prestige was placed on the fundus. The infundibulum was very hard to identify. We could not get a good pull on it. We identified the anterior lymph node. The peritoneum distally was pulled down and the peritoneum was still on the gallbladder. Going below the lymph node, the artery was readily identified anteriorly. It was somewhat small. Going distally, we found a very dilated cystic duct. This was circumscribed right by the gallbladder and again little bit more distally. It was a difficult, inflamed incision and took most of the time in the operating room. This having been done, under direct vision, the cystic artery was doubly clipped and divided to gain mobilization. A posterior artery was identified and later taken with the Harmonic. A clip was placed on the gallbladder. The cystic duct was opened, cholangiogram was obtained. Cholangiogram showed free dye into the duodenum and and left and right hepatic ducts, but there was also a small ovoid common duct stone. This was seen on multiple views. The cystic duct was then doubly clipped and divided and this allowed the Harmonic to shave the gallbladder off the liver bed, as it was difficult dissection and very edematous. This was placed on the bag and removed through the fascia of the umbilicus, which was cut. This was closed with mattress stitches of Vicryl. The wounds were injected with Marcaine after the liver bed was cauterized and dried. There was no bleeding, no bile. It was an elegant dissection. The patient was taken to recovery room in good condition after the sponge and needle counts were declared correct. Toribio Vegas MD [id number]
[2018-01-30 07:44] LABS: ALB/GLOB RATIO 0.9 (1.1-1.8); ALBUMIN 3.4 g/dL (3.0-4.8); ALT/SGPT 31 U/L (7-56); AST/SGOT 27 U/L (14-36); BLOOD UREA NITROGEN 7 mg/dL (7-21); CALCIUM 9.3 mg/dL (8.4-10.5); GFR AFRICAN-AMERICAN > 60; GFR NON-AFRICAN AMERICAN > 60
[2018-01-30 08:37] VITALS: RESP 20; O2SAT 97
--- NOTE | 2018-01-30 09:18 | CP.PCM.PN ---
Subjective - Date & Time of Evaluation Date of Evaluation: 01/30/18 Time of Evaluation: 09:08 - Subjective Subjective: Surgery: Dr. Vegas Patient doing well today. Some pain but controlled with medication. Tolerated some diet post op but made NPO after MN for GI evaluation. She denies n/v/f/c. Objective - Vital Signs/Intake and Output Vital Signs (last 24 hours): Temp Pulse Resp BP Pulse Ox 98.2 F 68 20 131/79 97 01/30/18 08:36 01/30/18 08:36 01/30/18 08:36 01/30/18 08:36 01/30/18 08:36 Intake and Output: 01/30/18 01/30/18 06:59 18:59 Intake Total 0 0 Balance 0 0 - Medications Medications: Current Medications Enoxaparin Sodium (Lovenox) 40 mg SC DAILY [facility] PRN Reason: Protocol Hydromorphone HCl (Dilaudid) 0.5 mg IVP Q4H PRN PRN Reason: Pain, severe (8-10) Last Admin: 01/30/18 05:31 Dose: 0.5 mg Sodium Chloride (Sodium Chloride 0.9%) 1,000 mls @ 150 mls/hr IV .Q6H40M [facility] Last Admin: 01/30/18 01:30 Dose: Not Given Metronidazole (Flagyl) 500 mg in 100 mls @ 100 mls/hr IVPB Q8 [facility] PRN Reason: Protocol Stop: 02/01/18 14:01 Last Admin: 01/30/18 05:27 Dose: 100 mls/hr Ceftriaxone Sodium (Rocephin 1 Gram Ivpb) 1 gm in 100 mls @ 100 mls/hr IVPB DAILY [facility] PRN Reason: Protocol Stop: 02/01/18 10:01 Last Admin: 01/29/18 10:50 Dose: 100 mls/hr Ondansetron HCl (Zofran Inj) 4 mg IVP Q4 PRN PRN Reason: Nausea/Vomiting Oxycodone/Acetaminophen (Percocet 5/325 Mg Tab) 1 tab PO Q4H PRN PRN Reason: Pain, moderate (4-7) Stop: 02/01/18 19:04 Sennosides (Senokot Tab) 17.2 mg PO HS [facility] - Labs Labs: 01/30/18 05:30 01/30/18 05:30 PT 13.7 SECONDS (9.4-12.5) H 01/29/18 03:30 INR 1.20 (0.93-1.08) H 01/29/18 03:30 - Constitutional Appears: Non-toxic, No Acute Distress - Head Exam Head Exam: ATRAUMATIC, NORMOCEPHALIC - Eye Exam Eye Exam: EOMI, Normal appearance - ENT Exam ENT Exam: Mucous Membranes Moist - Respiratory Exam Respiratory Exam: NORMAL BREATHING PATTERN. absent: Respiratory Distress - Cardiovascular Exam Cardiovascular Exam: REGULAR RHYTHM. absent: Tachycardia - GI/Abdominal Exam GI & Abdominal Exam: Soft. absent: Distended, Tenderness, Rebound Additional comments: incisions CDI - Neurological Exam Neurological Exam: Alert, Awake, Oriented x3 - Psychiatric Exam Psychiatric exam: Normal Affect, Normal Mood - Skin Skin Exam: Dry, Normal Color, Warm Assessment and Plan - Assessment and Plan (Free Text) Assessment: 28 y/o female w/ acute cholecystitis, POD1 from laparoscopic cholecystectomy with intraoperative choleangiogram found to have choledocholithiasis Plan: -GI consult for possible ERCP -repeat CMP in am, stone nonobstructing -diet pending GI eval, if no plans for intervention can resume regular diet -ok for po medications -ambulate -IS use -ok for DVT prophylaxis -further recs per Dr. Ascencion Santoro PGY3
[2018-01-30] MEDS ORDERED: Enoxaparin 40 mg Syringe SC SCH (10:00)
--- NOTE | 2018-01-30 10:04 | RAD ---
PROCEDURE: Operative cholangiogram HISTORY: ? CBD OBST COMPARISON: TECHNIQUE: Fluoroscopy was provided in the operating room. 26.2 seconds of fluoro time. Four images were submitted FINDINGS: There is a filling defect in the common bile duct. This could represent an air bubble were stone. Contrast flows into the duodenum without obstruction IMPRESSION: As above
[2018-01-30] MEDS: cefTRIAXone 1 gm 1 GM/100 ML BAG IVPB SCH (10:43)
--- NOTE | 2018-01-30 11:41 | CP.PCM.CON ---
History of Present Illness - History of Present Illness History of Present Illness: PGY4 Initial GI Consult Amanda Moura is a 28F w/ no pmh presents who presented with intermittent epigastric pain starting Friday morning. Her symptoms occured post-prandially. She described the pain as sharp, non-radiating, w. no alleviating or aggravating factors. Pain associated w. decreased appetite and nausea with multiple episodes of NBNB emesis. Pt denies diarrhea. Pt had U/S done in ED which showed findings concerning for cholecystitis. She was taken to the OR for Lap renae. An intraop cholangiogram revealed a possible CBD stone. Pt's LFTs are normal. In the AM, pt has slight tenderness at RUQ. Denies any BM, nausea, or vomiting PMH: None PSH: none Social: +Tobacco, social ETOH, no drugs Fhx: non-contributory ROS: 12-point ROS conducted, neg other than above Past Patient History - Infectious Disease Hx of Infectious Diseases: None - Tetanus Immunizations Tetanus Immunization: Unknown - Past Social History Smoking Status: Light Smoker < 10 Cigarettes Daily - CARDIAC Hx Cardiac Disorders: No - PULMONARY Hx Respiratory Disorders: No - NEUROLOGICAL Hx Neurological Disorder: Yes Hx Seizures: Yes Other/Comment: febrile seizure - HEENT Hx HEENT Problems: No - RENAL Hx Chronic Kidney Disease: No - ENDOCRINE/METABOLIC Hx Endocrine Disorders: No - HEMATOLOGICAL/ONCOLOGICAL Hx Blood Disorders: No - INTEGUMENTARY Hx Dermatological Problems: No - MUSCULOSKELETAL/RHEUMATOLOGICAL Hx Musculoskeletal Disorders: No - GASTROINTESTINAL Hx Gastrointestinal Disorders: No - GENITOURINARY/GYNECOLOGICAL Hx Genitourinary Disorders: No - PSYCHIATRIC Hx Psychophysiologic Disorder: No Hx Anxiety: Yes Hx Depression: No Hx Emotional Abuse: No Hx Physical Abuse: No Hx Substance Use: No - SURGICAL HISTORY Hx Surgeries: No - ANESTHESIA Hx Anesthesia: No Meds Allergies/Adverse Reactions: Allergies Allergy/AdvReac Type Severity Reaction Status Date / Time peanut Allergy ANAPHYLAXIS Verified 02/11/16 14:24 - Medications Medications: Current Medications Enoxaparin Sodium (Lovenox) 40 mg SC DAILY [facility] PRN Reason: Protocol Last Admin: 01/30/18 10:43 Dose: 40 mg Hydromorphone HCl (Dilaudid) 0.5 mg IVP Q4H PRN PRN Reason: Pain, severe (8-10) Last Admin: 01/30/18 10:54 Dose: 0.5 mg Sodium Chloride (Sodium Chloride 0.9%) 1,000 mls @ 150 mls/hr IV .Q6H40M [facility] Last Admin: 01/30/18 01:30 Dose: Not Given Metronidazole (Flagyl) 500 mg in 100 mls @ 100 mls/hr IVPB Q8 [facility] PRN Reason: Protocol Stop: 02/01/18 14:01 Last Admin: 01/30/18 05:27 Dose: 100 mls/hr Ceftriaxone Sodium (Rocephin 1 Gram Ivpb) 1 gm in 100 mls @ 100 mls/hr IVPB DAILY [facility] PRN Reason: Protocol Stop: 02/01/18 10:01 Last Admin: 01/30/18 10:43 Dose: 100 mls/hr Ondansetron HCl (Zofran Inj) 4 mg IVP Q4 PRN PRN Reason: Nausea/Vomiting Oxycodone/Acetaminophen (Percocet 5/325 Mg Tab) 1 tab PO Q4H PRN PRN Reason: Pain, moderate (4-7) Stop: 02/01/18 19:04 Sennosides (Senokot Tab) 17.2 mg PO HS [facility] Physical Exam - Constitutional Appears: Well, No Acute Distress - Head Exam Head Exam: ATRAUMATIC, NORMOCEPHALIC - Eye Exam Eye Exam: EOMI, Normal appearance - ENT Exam ENT Exam: Mucous Membranes Moist, Normal Exam - Respiratory Exam Respiratory Exam: Clear to Auscultation Bilateral, NORMAL BREATHING PATTERN. absent: Rales, Rhonchi, Wheezes, Respiratory Distress - Cardiovascular Exam Cardiovascular Exam: REGULAR RHYTHM, +S1 - GI/Abdominal Exam GI & Abdominal Exam: Normal Bowel Sounds, Soft. absent: Distended, Guarding, Hernia, Pulsatile Mass, Rebound, Rigid, Tenderness - Extremities Exam Extremities exam: Negative for: joint swelling, pedal edema - Neurological Exam Neurological exam: Alert, Oriented x3 - Psychiatric Exam Psychiatric exam: Normal Affect, Normal Mood - Skin Skin Exam: Dry, Intact, Normal Color, Warm Results - Vital Signs Recent Vital Signs: Last Vital Signs Temp 98.2 F 01/30/18 08:36 Pulse 68 01/30/18 08:36 Resp 20 01/30/18 08:36 BP 131/79 01/30/18 08:36 Pulse Ox 97 01/30/18 08:36 - Labs Result Diagrams: 01/30/18 05:30 01/30/18 05:30 Labs: Laboratory Results - last 24 hr 01/30/18 01/30/18 05:30 05:30 WBC 8.7 RBC 4.06 Hgb 10.6 L Hct 34.5 L MCV 85.0 MCH 26.1 MCHC 30.7 L RDW 15.2 H Plt Count 288 MPV 9.6 Gran % 67.4 Lymph % (Auto) 22.5 [place] % (Auto) 9.0 H Eos % (Auto) 0.8 L Baso % (Auto) 0.3 Gran # 5.88 Lymph # (Auto) 2.0 [place] # (Auto) 0.8 H Eos # (Auto) 0.1 Baso # (Auto) 0.03 Sodium 140 Potassium 3.8 Chloride 105 Carbon Dioxide 27 Anion Gap 12 BUN 7 Creatinine 0.5 L Est GFR ( Amer) > 60 Est GFR (Non-Af Amer) > 60 Random Glucose 83 Calcium 9.3 Total Bilirubin 0.3 AST 27 ALT 31 Alkaline Phosphatase 86 Total Protein 7.1 Albumin 3.4 Globulin 3.7 Albumin/Globulin Ratio 0.9 L Assessment & Plan - Assessment and Plan (Free Text) Assessment: Amanda Moura is a 28F w/ no sig medical hx who presents to the with abd pain. She was found to have cholecystitis on U/S s/p Lap renae POD#1. Cholecystitis s/p lap renae POD #1 Choledocholithiasis on intra-op cholangiogram Plan: -LFTs normal -no signs of coleangitis -can start diet from GI standpoint -earliest ERCP can be on Friday -if pt is still here on friday, plan for ERCP, if not then can be done as an oupt from out point, follow-up with Dr. young as an oupt and will schedule for ERCP. -support care as per primary team -monitor LFTS D/W Dr. Roberts
--- NOTE | 2018-01-30 14:09 | CP.PCM.DIS ---
Provider - Provider Date of Admission: 01/29/18 05:14 Attending physician: Toribio Vegas MD Primary care physician: NO PRIMARY CARE PROVIDER Time Spent in preparation of Discharge (in minutes): 20 Diagnosis - Discharge Diagnosis (1) Choledocholithiasis with acute cholecystitis Status: Acute Priority: High (2) Acute cholecystitis Status: Acute Priority: High Hospital Course - Lab Results Lab Results: Most Recent Lab Values WBC 8.7 10^3/ul (4.5-11.0) 01/30/18 05:30 RBC 4.06 10^6/uL (3.5-6.1) 01/30/18 05:30 Hgb 10.6 g/dL (12.0-16.0) L 01/30/18 05:30 Hct 34.5 % (36.0-48.0) L 01/30/18 05:30 MCV 85.0 fl (80.0-105.0) 01/30/18 05:30 MCH 26.1 pg (25.0-35.0) 01/30/18 05:30 MCHC 30.7 g/dl (31.0-37.0) L 01/30/18 05:30 RDW 15.2 % (11.5-14.5) H 01/30/18 05:30 Plt Count 288 10^3/uL (120.0-450.0) 01/30/18 05:30 MPV 9.6 fl (7.0-11.0) 01/30/18 05:30 Gran % 67.4 % (50.0-68.0) 01/30/18 05:30 Lymph % (Auto) 22.5 % (22.0-35.0) 01/30/18 05:30 [place] % (Auto) 9.0 % (1.0-6.0) H 01/30/18 05:30 Eos % (Auto) 0.8 % (1.5-5.0) L 01/30/18 05:30 Baso % (Auto) 0.3 % (0.0-3.0) 01/30/18 05:30 Gran # 5.88 (1.4-6.5) 01/30/18 05:30 Lymph # (Auto) 2.0 (1.2-3.4) 01/30/18 05:30 [place] # (Auto) 0.8 (0.1-0.6) H 01/30/18 05:30 Eos # (Auto) 0.1 (0.0-0.7) 01/30/18 05:30 Baso # (Auto) 0.03 K/mm3 (0.0-2.0) 01/30/18 05:30 PT 13.7 SECONDS (9.4-12.5) H 01/29/18 03:30 INR 1.20 (0.93-1.08) H 01/29/18 03:30 Sodium 140 mmol/L (132-148) 01/30/18 05:30 Potassium 3.8 mmol/L (3.6-5.0) 01/30/18 05:30 Chloride 105 mmol/L (98-107) 01/30/18 05:30 Carbon Dioxide 27 mmol/L (21-33) 01/30/18 05:30 Anion Gap 12 (10-20) 01/30/18 05:30 BUN 7 mg/dL (7-21) 01/30/18 05:30 Creatinine 0.5 mg/dl (0.7-1.2) L 01/30/18 05:30 Est GFR ( Amer) > 60 01/30/18 05:30 Est GFR (Non-Af Amer) > 60 01/30/18 05:30 Random Glucose 83 mg/dL (70-110) 01/30/18 05:30 Calcium 9.3 mg/dL (8.4-10.5) 01/30/18 05:30 Total Bilirubin 0.3 mg/dL (0.2-1.3) 01/30/18 05:30 AST 27 U/L (14-36) 01/30/18 05:30 ALT 31 U/L (7-56) 01/30/18 05:30 Alkaline Phosphatase 86 U/L (38-126) 01/30/18 05:30 Total Protein 7.1 g/dL (5.8-8.3) 01/30/18 05:30 Albumin 3.4 g/dL (3.0-4.8) 01/30/18 05:30 Globulin 3.7 gm/dL 01/30/18 05:30 Albumin/Globulin Ratio 0.9 (1.1-1.8) L 01/30/18 05:30 Lipase 96 U/L (23-300) 01/29/18 03:30 Urine Color Yellow (YELLOW) 01/29/18 03:30 Urine Appearance Clear (CLEAR) 01/29/18 03:30 Urine pH 6.5 (4.7-8.0) 01/29/18 03:30 Ur Specific [place] 1.010 (1.005-1.035) 01/29/18 03:30 Urine Protein Negative mg/dL (<30 mg/dL) 01/29/18 03:30 Urine Glucose (UA) Negative mg/dL (NEGATIVE) 01/29/18 03:30 Urine Ketones Negative mg/dL (NEGATIVE) 01/29/18 03:30 Urine Blood Negative (NEGATIVE) 01/29/18 03:30 Urine Nitrate Negative (NEGATIVE) 01/29/18 03:30 Urine Bilirubin Negative (NEGATIVE) 01/29/18 03:30 Urine Urobilinogen 0.2 E.U./dL (<1 E.U./dL) 01/29/18 03:30 Ur Leukocyte Esterase Negative [place]/uL (NEGATIVE) 01/29/18 03:30 - Hospital Course Hospital Course: Patient was admitted for acute cholecystitis. Patient was taken to OR on 01/29 for lap renae with IOC. Patient found to have a nonobstructing stone in the distal CBD. Contrast freely passed into duodenum. Patient tolerated procedure well. POD1 patient labs WNL. Patient evaluated by GI team who stated ERCP could be performed as outpatient if patient desired. Patient tolerating diet, pain controlled, ambulating and suitable for discharge home with strict post op instructions on care and follow up as outpatient with Dr. Kramer GI team and Dr. Vegas surgery. Patient reports understanding. Discharge Exam - Head Exam Head Exam: ATRAUMATIC, NORMOCEPHALIC - Eye Exam Eye Exam: EOMI - ENT Exam ENT Exam: Mucous Membranes Moist - Respiratory Exam Respiratory Exam: NORMAL BREATHING PATTERN. absent: Respiratory Distress - Cardiovascular Exam Cardiovascular Exam: REGULAR RHYTHM. absent: Tachycardia - GI/Abdominal Exam GI & Abdominal Exam: absent: Distended, Guarding, Hernia, Rebound, Rigid Additional comments: incisions CDI with dermabond closure - Neurological Exam Neurological exam: Alert, Oriented x3 - Psychiatric Exam Psychiatric exam: Normal Affect, Normal Mood - Skin Skin Exam: Dry, Normal Color, Warm Discharge Plan - Discharge Medications Prescriptions: oxyCODONE/Acetaminophen [Percocet 5/325 mg Tab] 1 tab PO Q4H PRN #20 tab PRN Reason: Pain, Moderate (4-7) - Follow Up Plan Condition: GOOD Disposition: HOME/ ROUTINE Instructions: Cholecystectomy, Laparoscopic Surgery, Laceration Repair With Glue (DC), Gallstones (DC), Endoscopic Retrograde Cholangiopancreatography (DC) , Cholecystitis (DC), Cholecystitis (GEN) Additional Instructions: Can shower, do not bathe or soak incisions. F/U with Dr. Kramer in about 1 week. Call office for appointment. F/U with surgeon Dr. Vegas in 1 week. Call office for appointment. No lifting greater than 10lbs. Return if develops vomiting, fever, or severe abdominal pain that does not respond to pain medication. Referrals: PCP,NO [Primary Care Provider] - Feliz Kramer MD [Staff Provider] - Toribio Vegas MD [Staff Provider] - Clinical Quality Measures - Date & Time of Discharge Summary Date of Discharge Summary: 01/30/18 Time of Discharge Summary: 14:10
[2018-01-30 17:11] VITALS: BP 131/78; PULSE 59; TEMP 98.8
== END 2018-01-30 18:10 | disposition home or self-care (01) | DRG 419 ==
LOC: ED 02:02 → ERH 05:14 → 3RNO 06:47
PROVIDERS: ADMIT Surgery; ATTEND Surgery
PROC: BF131ZZ Fluoroscopy of Gallbladder and Bile Ducts using Low Osmolar Contrast (ICD-10-PCS; 2018-01-29)
PROC: 0FT44ZZ Resection of Gallbladder, Percutaneous Endoscopic Approach (ICD-10-PCS; principal; 2018-01-29 13:45)
DX: K80.66 Calculus of gallbladder and bile duct with acute and chronic cholecystitis without obstruction (principal)

== ENCOUNTER 2018-02-12 10:26 | Day surgery (SDC) | payer BC ==
[2018-02-06 08:04] VITALS: BMI 45.6
[2018-02-12] MEDS ORDERED: Iohexol 240 (50 ml) ONE (10:43)
[2018-02-12] MEDS ORDERED: Indomethacin 50 MG Suppository PR ONE (10:44)
[2018-02-12 11:25] LABS: BASO # 0.04 K/mm3 (0.0-2.0); BASO % 0.8 % (0.0-3.0); EOS # 0.2 (0.0-0.7); EOS % 3.9 % (1.5-5.0); GRAN # 2.26 (1.4-6.5); GRAN % 46.6 % (50.0-68.0); HEMOGLOBIN 11.2 g/dL (12.0-16.0); LYMPH # 1.9 (1.2-3.4); LYMPH % 39.9 % (22.0-35.0); MEAN CELL VOLUME 82.9 fl (80.0-105.0); MEAN CORPUSCULAR HEMOGLOBIN 26.2 pg (25.0-35.0); MEAN CORPUSCULAR HGB CONC 31.6 g/dl (31.0-37.0); MEAN PLATELET VOLUME 9.6 fl (7.0-11.0); MONO # 0.4 (0.1-0.6); MONO % 8.8 % (1.0-6.0); RBC 4.27 10^6/uL (3.5-6.1); RED CELL DISTRIBUTION WIDTH 14.6 % (11.5-14.5); WHITE BLOOD COUNT 4.9 10^3/ul (4.5-11.0)
[2018-02-12 11:33] LABS: INR 1.18 (0.93-1.08); PARTIAL THROMBOPLASTIN TIME 29.9 Seconds (25.1-36.5); PROTHROMBIN TIME 13.6 SECONDS (9.4-12.5)
[2018-02-12 11:42] LABS: ALT/SGPT 32 U/L (7-56); AST/SGOT 29 U/L (14-36); BLOOD UREA NITROGEN 12 mg/dL (7-21); CALCIUM 9.8 mg/dL (8.4-10.5); GFR AFRICAN-AMERICAN > 60; GFR NON-AFRICAN AMERICAN > 60
[2018-02-12] MEDS ORDERED: Propofol 10 mg/ml Inj (20 ML) ONE (12:42)
[2018-02-12] MEDS ORDERED: Lidocaine 1% Inj (20ml) ONE (12:42)
[2018-02-12] MEDS ORDERED: Rocuronium 10 mg/ml (5 ml) ONE (12:42)
[2018-02-12] MEDS ORDERED: Succinylcholine 200 mg/10 ml Inj IV ONE (12:42)
[2018-02-12] MEDS ORDERED: Neostigmine Methylsulfate 3mg/3ml Syringe IV ONE (13:05)
[2018-02-12] MEDS ORDERED: HYDROmorphone 0.5 mg/0.5 ml ISec IVP PRN (13:23)
[2018-02-12 13:30] VITALS: TEMP 98.3
[2018-02-12] MEDS ORDERED: Sodium Chloride 0.9% 1,000 ML IV SCH (13:30)
[2018-02-12 14:08] VITALS: RESP 18
[2018-02-12 15:06] VITALS: BP 129/76; PULSE 55; O2SAT 100
== END 2018-02-12 15:08 | disposition home or self-care (01) ==
LOC: ENDO 10:26
PROVIDERS: ATTEND Internal Medicine
DX: R10.11 Right upper quadrant pain (principal)
CPT/HCPCS: 36415; 43259; 80053; 84703; 85025; 85610; 85730; J0330; J1170; J2001; J2405; J2704; J2710; J3010; J7040 ×2